=== PATIENT | female | born 1995 | race Hispanic/Latino ===

== ENCOUNTER 2018-04-20 00:18 | Inpatient (IN) | payer OTHER ==
[2018-04-20] MEDS ORDERED: OXYTOCIN 30 UNITS IN 0.9% NaCl 500ML IV BAG (J2590) As Ordered (00:53)
[2018-04-20 01:01] LABS: HEMATOCRIT 39.6 % (36.0-47.0); HEMOGLOBIN 13.4 g/dl (12.0-15.5); MEAN CORPUSCULAR HEMOGLOBIN 27.6 pg (27.0-33.0); MEAN CORPUSCULAR HGB CONC 33.8 g/dl (32.0-36.5); MEAN CORPUSCULAR VOLUME 81.6 fl (80.0-96.0); PLATELET COUNT, AUTOMATED 228 10^3/uL (150-450); RED BLOOD COUNT 4.85 10^6/uL (4.00-5.40); RED CELL DISTRIBUTION WIDTH 18.1 % (11.5-14.5); WHITE BLOOD COUNT 12.1 10^3/uL (4.0-10.0)
[2018-04-20 01:15] LABS: CORD GAS ABE V 2.9; CORD GAS HCO3 V 26.1 MEQ/L; CORD GAS O2 SAT V 39.2 %; CORD GAS PCO2 V 36.1 mmHg; CORD GAS PH V 7.477 UNITS; CORD GAS SBC V 25.2 MEQ/L; CORD GAS TCO2 V 27.2 MEQ/L
[2018-04-20 01:16] LABS: CORD GAS ABE A 0.9; CORD GAS HCO3 A 26.3 MEQ/L; CORD GAS O2 SAT A < 15.0 %; CORD GAS PCO2 A 44.2 mmHg; CORD GAS PH A 7.392 UNITS; CORD GAS PO2 A < 10.0 mmHg; CORD GAS TCO2 A 27.6 MEQ/L
[2018-04-20] MEDS ORDERED: OXYTOCIN DRIP 30 UNITS in APPROPRIATE DILUENT 1 EA IV (01:42)
[2018-04-20] MEDS ORDERED: METHYLERGONOVINE MALEATE 0.2 MG TAB PO (01:45)
[2018-04-20] MEDS ORDERED: OXYTOCIN INJ 10 UNITS/ML VIAL (J2590) IV (01:45)
[2018-04-20] MEDS ORDERED: ANUSOL HC CREAM 30GM TOP (01:45)
[2018-04-20] MEDS ORDERED: DIBUCAINE 1% OINTMENT 30GM TOP (01:45)
[2018-04-20] MEDS ORDERED: MOM 30ML SUSPENSION UDC PO (01:45)
[2018-04-20] MEDS ORDERED: DOCUSATE SODIUM 100 MG CAP PO (01:45)
[2018-04-20 02:00] LABS: GLUCOSE,RANDOM 97 MG/DL (LESS THAN 200)
[2018-04-20 02:06] LABS: ESTIMATED AVERAGE GLUCOSE 94 MG/DL (60-110); HEMOGLOBIN A1c 4.9 %
[2018-04-20] MEDS: IBUPROFEN 800 MG TAB PO ×2 (02:27→20:24)
[2018-04-20] MEDS ORDERED: OXYTOCIN INJ 10 UNITS/ML VIAL (J2590) As Ordered (03:30)
[2018-04-20] MEDS: ACETAMINOPHEN 500 MG TAB PO (06:14)
[2018-04-20] MEDS: RHOGAM 300 MCG (1500 IU) INJ (J2790) IM (07:36)
[2018-04-20] MEDS: MEASLES,MUMPS,RUBELLA VACCINE INJ (MMR-II) (90707) SC (07:37)
[2018-04-20] MEDS: PRENATAL VITAMINS CHEWABLE TABLET PO (08:18)
[2018-04-21] MEDS: IBUPROFEN 800 MG TAB PO (05:58)
[2018-04-21 07:31] LABS: HEMATOCRIT 33.7 % (36.0-47.0); MEAN CORPUSCULAR HEMOGLOBIN 27.7 pg (27.0-33.0); MEAN CORPUSCULAR HGB CONC 33.2 g/dl (32.0-36.5); MEAN CORPUSCULAR VOLUME 83.2 fl (80.0-96.0); PLATELET COUNT, AUTOMATED 139 10^3/uL (150-450); RED BLOOD COUNT 4.05 10^6/uL (4.00-5.40); RED CELL DISTRIBUTION WIDTH 18.7 % (11.5-14.5)
[2018-04-21 07:37] LABS: HEMOGLOBIN 11.2 g/dl (12.0-15.5)
[2018-04-21] MEDS: medroxyPROGESTERone ACET IM SUSP 150 MG/ML VIAL (J1050) IM (08:00)
[2018-04-21] MEDS: PRENATAL VITAMINS CHEWABLE TABLET PO (08:49)
== END 2018-04-21 10:45 | disposition home or self-care (01) | DRG 775 ==
LOC: M LDO 00:18 → M LDI 01:00 → M OBS 03:09
PROVIDERS: Obstetrics & Gynecology
PROC: 10E0XZZ Delivery of Products of Conception, External Approach (ICD-10-PCS; principal; 2018-04-20)
PROC: 0HQ9XZZ Repair Perineum Skin, External Approach (ICD-10-PCS; 2018-04-20)
DX: O60.14X0 Preterm labor third trimester with preterm delivery third trimester, not applicable or unspecified (principal); O42.013 Preterm premature rupture of membranes, onset of labor within 24 hours of rupture, third trimester; Z37.0 Single live birth; Z3A.34 34 weeks gestation of pregnancy; K21.9 Gastro-esophageal reflux disease without esophagitis; Z68.20 Body mass index [BMI] 20.0-20.9, adult; O26.13 Low weight gain in pregnancy, third trimester; O24.429 Gestational diabetes mellitus in childbirth, unspecified control; O64.8XX0 Obstructed labor due to other malposition and malpresentation, not applicable or unspecified; O62.3 Precipitate labor; O70.0 First degree perineal laceration during delivery; O99.62 Diseases of the digestive system complicating childbirth